=== PATIENT | male | born 1970 | race Caucasian/White ===

== ENCOUNTER 2016-10-27 10:59 | Emergency (ER) | payer SELFPAY ==
[~2016-10-27] VITALS: Ht 182.9 cm; Wt 79.0 kg
[~2016-10-27 10:59] MED LIST: CEPH500C3 PO; LORTA5 PO
[2016-10-27 11:04] VITALS: BP 135/89; PULSE 70; RESP 16; TEMP 97.7; O2SAT 99
--- NOTE | 2016-10-27 12:15 | PD ---
HPI Chief Complaint: Musculoskeletal Complaint Time Seen by Provider: 12:09 Travel History International Travel<30 days: No Contact w/Intl Traveler<30days: No Traveled to known affect area: No History of Present Illness HPI Patient is a 46-year-old female who presents with right forearm pain. 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 Since any flexion in the right forearm produces pain. No slip, fall or significant trauma. Patient notes a slight amount of swelling in his been taking ibuprofen with some improvement. PFSH Past Medical History Diminished Hearing: No Herniated Disk: Yes Tetanus Vaccination: < 5 Years Influenza Vaccination: Yes Past Surgical History Abdominal Surgery: Yes (Umb. hernia repair) Other Surgery: Yes (LEFT HAND AND UMBILICAL HERNIA REPAIR) Social History Alcohol Use: No Tobacco Use: Yes (1 PPD) Substance Use: Yes (Marijuana) Allergies-Medications (Allergen,Severity, Reaction): Coded Allergies: Bactrim (Verified Allergy, Unknown, UNKNOWN, 10/27/16) Reported Meds & Prescriptions Reported Meds & Active Scripts Active No Active Prescriptions or Reported Medications Review of Systems Except as stated in HPI: all other systems reviewed are Neg Physical Exam Narrative GENERAL: Well-appearing male in no acute distress SKIN: Focused skin assessment warm/dry. HEAD: Normocephalic. EYES: No scleral icterus. No injection or drainage. ENT: Mucous membranes pink and moist. NECK: Supple CARDIOVASCULAR: Regular rate and rhythm. RESPIRATORY: No accessory muscle use MUSCULOSKELETAL: Right forearm with tenderness to palpation over the lateral antecubital at the insertion point of the forearm flexor muscles. There is a slight amount of swelling here. No track ruvalcaba, erythema. Patient has full range of motion of the elbow with flexion and extension, supination and pronation. Extreme extension. Within the region of pain. NEUROLOGICAL: Awake and alert. Normal speech. PSYCHIATRIC: Appropriate mood and affect; insight and judgment normal. Data Data Last Documented VS Vital Signs Date Time Temp Pulse Resp B/P Pulse Ox O2 Delivery O2 Flow Rate FiO2 10/27/16 11:04 97.7 70 16 135/89 99 Orders ^ Jorge Bandage (10/27/16 12:14) MDM Medical Decision Making Medical Screen Exam Complete: Yes Emergency Medical Condition: Yes Medical Record Reviewed: Yes Differential Diagnosis 46-year-old male here with complaint of right forearm pain since heavy lifting. Exam is consistent with strain of the flexor muscles of the forearm level is a insert in the antecubital region. full range of motion and based on his mechanism no concern for fracture. Narrative Course Patient reassured, instructed to avoid heavy lifting. Ice, anti-inflammatories Diagnosis Primary Impression: STRAIN OF MUSC/FASC/TEND AT FOREARM LEVEL, RIGHT ARM, INIT Referrals: [facility] as needed Departure Forms: Tests/Procedures, Work Release Enter return to work date: Oct 30, 2016 Additional Instructions: Ibuprofen 800 mg 3 times a day as needed for pain and swelling. Jorge wrap as needed. Avoid heavy lifting as discussed. Med/Other Pt SpecificInfo: No Change to Meds Scripts No Active Prescriptions or Reported Meds Disposition: 01 DISCHARGE HOME Condition: Stable Melody Falk MD Oct 27, 2016 12:15
== END 2016-10-27 12:20 | disposition home or self-care (01) ==
LOC: PHED 10:59 → PHEFT 12:20
DX: S56.201A Unspecified injury of other flexor muscle, fascia and tendon at forearm level, right arm, initial encounter (principal); F17.210 Nicotine dependence, cigarettes, uncomplicated; X50.0XXA Overexertion from strenuous movement or load, initial encounter; Y93.89 Activity, other specified; Y92.9 Unspecified place or not applicable; Y99.0 Civilian activity done for income or pay
CPT/HCPCS: 99282

== ENCOUNTER 2017-09-03 10:12 | Emergency (ER) | payer SELFPAY ==
[~2017-09-03] VITALS: Ht 182.9 cm; Wt 89.8 kg
[2017-09-03 10:20] VITALS: BP 146/78; PULSE 89; RESP 16; TEMP 98.9; O2SAT 97
[2017-09-03] MEDS ORDERED: KETOROLAC TROMETHAMINE 60 MG/2 ML (IM) VIAL IM ONE (10:45)
[2017-09-03] MEDS ORDERED: ORPHENADRINE INJ 60 MG/2 ML AMP IM ONE (10:45)
[2017-09-03] MEDS ORDERED: KETO10 PO (10:48)
[2017-09-03] MEDS ORDERED: ROBA750T PO (10:48)
--- NOTE | 2017-09-03 10:49 | PD ---
HPI Chief Complaint: Musculoskeletal Complaint Time Seen by Provider: 10:28 Travel History International Travel<30 days: No Contact w/Intl Traveler<30days: No Traveled to known affect area: No History of Present Illness HPI 47-year-old male here with left-sided low back pain that radiates into the buttocks and leg 3 days. Denies recent injury or trauma. Symptom severity is moderate. Aggravated by sitting and lying flat, twisting and turning. Relieved with standing erect. Denies fever or chills, saddle anesthesia, incontinence, paresthesia or weakness of the extremities. Taking Motrin and Flexeril with minimal relief PFSH Past Medical History Medical History: Denies Significant Hx Diminished Hearing: No Herniated Disk: Yes Past Surgical History Abdominal Surgery: Yes (Umb. hernia repair) Other Surgery: Yes (LEFT HAND AND UMBILICAL HERNIA REPAIR) Social History Alcohol Use: Yes (socially) Tobacco Use: Yes (1 PPD) Substance Use: Yes (Marijuana) Allergies-Medications (Allergen,Severity, Reaction): Coded Allergies: sulfamethoxazole (Unverified Allergy, Unknown, UNKNOWN, 09/03/17) trimethoprim (Unverified Allergy, Unknown, UNKNOWN, 09/03/17) Reported Meds & Prescriptions Reported Meds & Active Scripts Active Robaxin (Methocarbamol) 750 Mg Tab 750 Mg PO QID Ketorolac (Ketorolac Tromethamine) 10 Mg Tab 10 Mg PO TID Review of Systems Except as stated in HPI: all other systems reviewed are Neg General / Constitutional: No: Fever HENT: No: Headaches Cardiovascular: No: Chest Pain or Discomfort Respiratory: No: Shortness of Breath Gastrointestinal: No: Abdominal Pain Genitourinary: No: Dysuria Physical Exam Narrative GENERAL: Alert and well-appearing 47-year-old male. Patient ambulating in the room with a steady gait SKIN: Warm and dry. HEAD: Normocephalic. EYES: No scleral icterus. No injection or drainage. NECK: Supple, trachea midline. No lymphadenopathy. CARDIOVASCULAR: Regular rate and rhythm without murmurs, gallops, or rubs. RESPIRATORY: Breath sounds equal bilaterally. No accessory muscle use. GASTROINTESTINAL: Abdomen soft, non-tender, nondistended. MUSCULOSKELETAL: No cyanosis, or edema. Normal strength and sensation in extremities. 2+ DTRs. BACK: +TTP lumbar para vertebral musculature + SI joint. No midline spine tenderness. Without obvious deformity. No CVA tenderness. Data Data Last Documented VS Vital Signs Date Time Temp Pulse Resp B/P (MAP) Pulse Ox O2 Delivery O2 Flow Rate FiO2 09/03/17 10:20 98.9 89 16 146/78 (100) 97 Orders Orders Ketorolac Inj (Toradol Inj) (09/03/17 10:45) Orphenadrine Inj (Norflex Inj) (09/03/17 10:45) MDM Medical Decision Making Medical Screen Exam Complete: Yes Emergency Medical Condition: Yes Differential Diagnosis Sciatica, lumbar strain, herniated disc Narrative Course 47-year-old male here with sciatica pain. He has a normal neurologic exam. He is given a shot of Toradol and Norflex and reports symptom improvement. Diagnosis Primary Impression: Sciatica Qualified Codes: M54.32 - Sciatica, left side Referrals: [facility] Primary Care Physician Additional Instructions: Medication as directed. Follow-up with [facility] Scripts Methocarbamol (Robaxin) 750 Mg Tab 750 MG PO QID for Muscle Spasm, #15 TAB 0 Refills Prov: Mini Mendoza 09/03/17 Ketorolac (Ketorolac) 10 Mg Tab 10 MG PO TID for Pain Management, #15 TAB 0 Refills Prov: Mini Mendoza 09/03/17 Disposition: 01 DISCHARGE HOME Condition: Stable Mini Mendoza Sep 03, 2017 10:49
== END 2017-09-03 11:12 | disposition home or self-care (01) ==
LOC: PHEFT 10:12
DX: M54.42 Lumbago with sciatica, left side (principal); F17.200 Nicotine dependence, unspecified, uncomplicated; F12.90 Cannabis use, unspecified, uncomplicated
CPT/HCPCS: 96372; 99283; J1885; J2360

== ENCOUNTER 2017-09-10 17:27 | Emergency (ER) | payer SELFPAY ==
[~2017-09-10 17:27] MED LIST changes: -CEPH500C3 PO; +KETO10 PO; -LORTA5 PO; +ROBA750T PO
[2017-09-10 17:28] VITALS: BP 136/63; PULSE 80; RESP 20; TEMP 98.4; O2SAT 98
--- NOTE | 2017-09-10 18:16 | PD ---
HPI Chief Complaint: Musculoskeletal Complaint Time Seen by Provider: 17:48 Travel History International Travel<30 days: No Contact w/Intl Traveler<30days: No Traveled to known affect area: No History of Present Illness HPI 47-year-old male here with left-sided low back pain that radiates into the buttocks and leg 3 weeks. Denies recent injury or trauma. Symptom severity is moderate. Aggravated by sitting and lying flat, twisting and turning. Relieved with standing erect. Denies fever or chills, saddle anesthesia, incontinence, paresthesia or weakness of the extremities. Was seen in the ER 10 days ago for same complaint. He reports the medications provided did not alleviate his symptoms. He followed up with the [place] [facility] but did not qualify for their sliding scale pain systems therefore cannot be seen. He does not endorse worsening symptoms. [facility] Past Medical History Medical History: Denies Significant Hx Diminished Hearing: No Herniated Disk: Yes Medical other: Yes (sciatica ) Tetanus Vaccination: < 5 Years Influenza Vaccination: No Past Surgical History Abdominal Surgery: Yes (Umb. hernia repair) Other Surgery: Yes (LEFT HAND AND UMBILICAL HERNIA REPAIR) Social History Alcohol Use: Yes (socially) Tobacco Use: Yes (1 PPD) Substance Use: Yes (Marijuana) Allergies-Medications (Allergen,Severity, Reaction): Coded Allergies: sulfamethoxazole (Unverified Allergy, Unknown, UNKNOWN, 09/03/17) trimethoprim (Unverified Allergy, Unknown, UNKNOWN, 09/03/17) Reported Meds & Prescriptions Reported Meds & Active Scripts Active No Active Prescriptions or Reported Medications Review of Systems Except as stated in HPI: all other systems reviewed are Neg General / Constitutional: No: Fever Eyes: No: Visual changes HENT: No: Headaches Cardiovascular: No: Chest Pain or Discomfort Respiratory: No: Shortness of Breath Gastrointestinal: No: Abdominal Pain Genitourinary: No: Dysuria Physical Exam Narrative GENERAL: Alert and well-appearing 47-year-old male. SKIN: Warm and dry. HEAD: Normocephalic. EYES: No scleral icterus. No injection or drainage. NECK: Supple, trachea midline. CARDIOVASCULAR: Regular rate and rhythm without murmurs, gallops, or rubs. RESPIRATORY: Breath sounds equal bilaterally. No accessory muscle use. GASTROINTESTINAL: Abdomen soft, non-tender, nondistended. MUSCULOSKELETAL: No cyanosis, or edema. Normal strength and sensation lower extremities. 2+ DTRs. BACK: +ttp left sacroiliac joint. +ttp left gluteal. No thoracic or lumbar spine tenderness. Without obvious deformity. No CVA tenderness. Data Data Last Documented VS Vital Signs Date Time Temp Pulse Resp B/P (MAP) Pulse Ox O2 Delivery O2 Flow Rate FiO2 09/10/17 17:28 98.4 80 20 136/63 (87) 98 Orders Orders Spine, Lumbar Comp W/Obliq (09/10/17 ) MDM Medical Decision Making Medical Screen Exam Complete: Yes Emergency Medical Condition: Yes Differential Diagnosis Sciatica, SI joint pain, lumbar strain Narrative Course This is a 47-year-old male here with sciatica pain. His pain is localized to the left SI joint. It radiates into the leg intermittently. He has a normal neurologic exam. He is observed ambulating with a steady gait. Normal DTRs in the lower extremity. He apparently was unable to follow-up with the [facility] as he did not qualify for the sliding scale pay system. Lumbar x-rays are negative for fracture. Diagnosis Primary Impression: Sciatica Qualified Codes: M54.32 - Sciatica, left side Referrals: [facility] Primary Care Physician Additional Instructions: Medication as directed. Follow-up with [facility]. Scripts Methocarbamol (Robaxin) 750 Mg Tab 750 MG PO QID for Muscle Spasm, #15 TAB 0 Refills Prov: Mnii Mendoza 09/10/17 Disposition: 01 DISCHARGE HOME Condition: Stable Mini Mendoza Sep 10, 2017 18:16
--- NOTE | 2017-09-10 19:13 | RADRPT ---
EXAM DATE/TIME: 09/10/2017 18:44 [place] COMPARISON: SPINE LUMBAR LTD (AP & LAT), January 10, 2012, 15:48. INDICATIONS : Patient states he was at [facility] on September 03 and was diagnosed by CARISA Skinner with sciatic nerve pain. Continuous pain in left lower back. Original injury patient states he fell in July. MEDICAL HISTORY : None. SURGICAL HISTORY : None. ENCOUNTER: Initial ACUITY: 1 month PAIN SCORE: 10/10 LOCATION: Left Lower back FINDINGS: No fracture or subluxation of the lumbar spine. Vertebral bodies have normal height. Disc space narrowing with bilateral facet osteoarthritis seen, moderate at L4/L5 and mild to moderate at L5/S1. CONCLUSION: Lower lumbar degenerative changes as above. No fracture or subluxation. Kp Bellamy MD on September 10, 2017 at 19:09 Board Certified Radiologist. This report was verified electronically.
[2017-09-10] MEDS ORDERED: ROBA750T PO (19:20)
== END 2017-09-10 19:38 | disposition home or self-care (01) ==
LOC: PHEFT 17:27
DX: M54.32 Sciatica, left side (principal); M51.36 Other intervertebral disc degeneration, lumbar region; F17.200 Nicotine dependence, unspecified, uncomplicated; F12.90 Cannabis use, unspecified, uncomplicated; Z88.2 Allergy status to sulfonamides; Z88.8 Allergy status to other drugs, medicaments and biological substances
CPT/HCPCS: 72110; 99283

== ENCOUNTER 2017-09-25 14:41 | Emergency (ER) | payer SELFPAY ==
[~2017-09-25] VITALS: Ht 182.9 cm; Wt 87.3 kg
[~2017-09-25 14:41] MED LIST changes: -KETO10 PO
[2017-09-25 14:44] VITALS: BP 158/79; PULSE 82; RESP 18; TEMP 98.7; O2SAT 98
[2017-09-25] MEDS ORDERED: DEXAMETHASONE SOD PHOS 4 MG/ML VIAL IM ONE (15:15)
[2017-09-25] MEDS ORDERED: ORPHENADRINE INJ 60 MG/2 ML AMP IM ONE (15:15)
[2017-09-25] MEDS ORDERED: MEDR4PAK PO (15:19)
[2017-09-25] MEDS ORDERED: CYCL5TAB PO (15:19)
--- NOTE | 2017-09-25 15:22 | PD ---
HPI Chief Complaint: Musculoskeletal Complaint Time Seen by Provider: 14:59 Travel History International Travel<30 days: No Contact w/Intl Traveler<30days: No Traveled to known affect area: No History of Present Illness HPI 47-year-old male presents emergency department complaining of left-sided sciatica pain that started August 31. Patient states that she works in [employer] and likely contributed to his pain. Says the pain is been intermittent, severe, starting in the left glutes radiating down to the foot. Denies any weakness. Denies numbness or tingling. Patient states that he is concerned because he may be fired because of difficulty going to work. Patient says he has been here twice previously for evaluation and received muscle relaxer and a "pain medication". Says that the muscle relaxer did seem to help relieve his pain however, states he had to double up on the dose and has run out of this medication. In addition, patient states that he has been taking "100 tabs" of Tylenol or Motrin per day to be able to work. Says that he does not meet criteria [facility]. Says he went to [facility] and spoke to a woman named Jackie. She he says that he has a physical therapy appointment in approximately 1 month. Denies trauma. PFSH Past Medical History Diminished Hearing: No Herniated Disk: Yes Past Surgical History Abdominal Surgery: Yes (Umb. hernia repair) Other Surgery: Yes (LEFT HAND AND UMBILICAL HERNIA REPAIR) Social History Alcohol Use: Yes (socially) Tobacco Use: Yes (1 PPD) Substance Use: Yes (Marijuana) Allergies-Medications (Allergen,Severity, Reaction): Coded Allergies: sulfamethoxazole (Unverified Allergy, Unknown, UNKNOWN, 09/25/17) trimethoprim (Unverified Allergy, Unknown, UNKNOWN, 09/25/17) Reported Meds & Prescriptions Reported Meds & Active Scripts Active Flexeril (Cyclobenzaprine HCl) 5 Mg Tab 5 Mg PO TID 5 Days Medrol Dosepak (Methylprednisolone) 4 Mg Dspk 4 Mg PO DIRECTED Per Pharmacist direction Review of Systems Except as stated in HPI: all other systems reviewed are Neg Physical Exam Narrative GENERAL: Well-developed, well-nourished in mild distress. Patient standing with knee partially flexed without placing pressure on left foot SKIN: Focused skin assessment warm/dry. No rashes or lesions noted HEAD: Atraumatic. Normocephalic. EYES: Pupils equal and round. No scleral icterus. No injection or drainage. ENT: No nasal bleeding or discharge. Mucous membranes pink and moist. NECK: Trachea midline. No JVD. CARDIOVASCULAR: Regular rate and rhythm. No murmur appreciated. RESPIRATORY: No accessory muscle use. Clear to auscultation. Breath sounds equal bilaterally. MUSCULOSKELETAL: No obvious deformities. No clubbing. No cyanosis. No edema. Left lower extremity-tenderness palpation to the left glutes. No rashes or lesions noted. Grade 5/5 strength lower extremities. Patient unable to sit because of pain. Neurovascular intact NEUROLOGICAL: Awake and alert. No obvious cranial nerve deficits. Motor grossly within normal limits. Normal speech. PSYCHIATRIC: Appropriate mood and affect; insight and judgment normal. Data Data Last Documented VS Vital Signs Date Time Temp Pulse Resp B/P (MAP) Pulse Ox O2 Delivery O2 Flow Rate FiO2 09/25/17 17:01 09/25/17 16:30 71 16 98 09/25/17 14:44 98.7 Orders Orders Dexamethasone Inj (Decadron Inj) (09/25/17 15:15) Orphenadrine Inj (Norflex Inj) (09/25/17 15:15) Acetamin-Hydrocod 325-5 Mg (Marlin 5-325 (09/25/17 16:30) Ed Discharge Order (09/25/17 16:33) [facility] Medical Decision Making Medical Screen Exam Complete: Yes Emergency Medical Condition: Yes Differential Diagnosis Left-sided sciatica, piriformis syndrome, muscle spasm Narrative Course 47-year-old male presents emergency department complaining of left-sided sciatica pain that started August 31. Patient states that she works in [employer] and likely contributed to his pain. Says the pain is been intermittent, severe, starting in the left glutes radiating down to the foot. Denies any weakness. Denies numbness or tingling. Patient states that he is concerned because he may be fired because of difficulty going to work. Patient says he has been here twice previously for evaluation and received muscle relaxer and a "pain medication". Says that the muscle relaxer did seem to help relieve his pain however, states he had to double up on the dose and has run out of this medication. In addition, patient states that he has been taking "100 tabs" of Tylenol or Motrin per day to be able to work. Says that he does not meet criteria to go to [facility]. Says he went to [facility] and spoke to a woman named Jackie. She he says that he has a physical therapy appointment in approximately 1 month. Denies trauma. Vital signs stable. His exam findings are consistent with left-sided sciatica pain. Since there has been no trauma or other concerning, inciting events, will avoid imaging studies today. I do not suspect any serious or acute process other than sciatica. Dexamethasone and Norflex administered in the emergency department. Monitored. He says his pain has not significantly improved. Ordered Hydrocodone for pain. Patient will be discharged with Medrol Dosepak and Flexeril. Patient was ambulatory and appeared to have a less antalgic gait upon discharge today. Advised to use [id number] medications per package instructions. Diagnosis Primary Impression: Sciatica Qualified Codes: M54.32 - Sciatica, left side Additional Impression: Muscle spasm Referrals: [facility] Neurologist Orthopedist Departure Forms: Tests/Procedures, Work Release Enter return to work date: September 27, 2017 Special Instructions: Allow additional time for relief of pain. Additional Instructions: Start the medrol dose pack tomorrow. Perform light stretches of the lower back and legs, and alternate heat and ice packs. If you develop increased pain, weakness, fever, chills, or bowel or bladder issues, return to the ED for further treatment and evaluation. Follow up with your primary care physician in 2-3 days. Scripts Cyclobenzaprine (Flexeril) 5 Mg Tab 5 MG PO TID for Muscle Spasm for 5 Days, #15 TAB 0 Refills Prov: Thang Barcenas MD 09/25/17 Methylprednisolone Dosepak (Medrol Dosepak) 4 Mg Dspk 4 MG PO DIRECTED, #1 DSPK 0 Refills Per Pharmacist direction Prov: Thang Barcenas MD 09/25/17 Disposition: 01 DISCHARGE HOME Condition: Stable Shanique Benavidez September 25, 2017 15:22
[2017-09-25 16:30] VITALS: BP 163/81; PULSE 71; RESP 16; O2SAT 98
[2017-09-25] MEDS ORDERED: ACETAMINOPHEN/HYDROcodone 325 MG/5 MG TAB PO ONE (16:30)
== END 2017-09-25 17:06 | disposition home or self-care (01) ==
LOC: PHEFT 14:41
DX: M54.32 Sciatica, left side (principal); M62.838 Other muscle spasm; F17.200 Nicotine dependence, unspecified, uncomplicated; F12.90 Cannabis use, unspecified, uncomplicated
CPT/HCPCS: 96372; 99283; J1100; J2360